=== PATIENT | male | born 1940 | race Caucasian/White ===

== ENCOUNTER 2017-09-18 07:50 | Emergency (ER) | payer BC ==
[~2017-09-18] VITALS: Ht 172.7 cm; Wt 86.2 kg
[~2017-09-18 07:50] MED LIST: ACET-1311 PO; ASPCH81 PO; BENZ1CAP90 PO; COUGH MED; GFNSR600 PO; GLC5 PO; GLC500 PO; METO100T44 PO; MULT-506 PO; OMEG10007 PO; PANT40TA PO; SIMV20TA2 PO
[2017-09-18] MEDS: SODIUM CHLORIDE 0.9% 1000ML 1,000 ML IV STA ×4 (07:50→08:25)
[2017-09-18 07:55] VITALS: TEMP 36.8; Ht 172.7 cm; Wt 86.2 kg
[2017-09-18] MEDS ORDERED: CHOLESTYRAMINE LIGHT 4 GM PKT PO STA (08:02)
[2017-09-18] MEDS ORDERED: KETOROLAC TROMETHAMINE 30 MG/ML VIAL IV STA (08:02)
--- NOTE | 2017-09-18 08:11 | EMERGENCY ROOM VISIT NOTE ---
History Report prepared by Nitza: Magalie Dalton Under the Supervision of: Dr. Celio Robertson M.D. First contact with patient: 07:52 Stated Complaint: ILLNESS History of Present Illness The patient is a 77 year old male who presents to the Emergency Room with complaints of a constant illness beginning 3 hours [employer]AMPING [employer]. The patient woke up at 5am today and felt like he needed to have a bowel movement. He went to the bathroom and had diarrhea. He began feeling weak. He reports chills and sweats. He had a near syncopal episode after the bathroom and states that he fell to the ground because he felt so weak. His called an ambulance. The patient was brought to the ED for further evaluation. 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 He received 4 mg Zofran en route to the ED. The patient states that he had been feeling well yesterday. He does report eating a chicken salad sandwich from a restaurant yesterday afternoon that he thinks may have made him sick. The patient denies any abdominal pain or recent antibiotic use. Source of History: patient Onset: 3 hours STAMPING [employer]ENCH Position: other (global) Quality: other (illness) Timing: constant Associated Symptoms: + chills, + diarrhea, + weakness, No abdominal pain Review of Systems See HPI for pertinent positives & negatives. A total of 10 systems reviewed and were otherwise negative. Past Medical & Surgical Medical Problems: (1) AAA (abdominal aortic aneurysm) (2) Chronic maxillary sinusitis (3) Coronary atherosclerosis of [place] coronary vessel Family History Non-pertinent due to advanced age. Social History Smoking Status: Former Smoker Smokeless Tobacco Use: No Marital Status: Housing Status: lives with significant other Occupation Status: retired Current/Historical Medications Scheduled Aspirin (Aspirin), 81 MG PO DAILY Fish Oil (Rush-3), 1 CAP PO DAILY Glipizide (Glipizide), 10 MG PO DAILY Guaifenesin Ext Rel (Mucinex Ext Rel), 600 MG PO HS Insulin Glargine (Lantus), 28 UNITS SC QAM Lisinopril (Zestril), 2.5 MG PO DAILY Loratadine (Claritin), 10 MG PO DAILY Metformin Hcl (Glucophage), 1,000 MG PO BID Metoprolol Succ (Toprol Xl) (Toprol-Xl ), 100 MG PO HS Multivitamin (Multivitamin), 1 TAB PO DAILY Nitroglycerin (Nitrostat), 0.4 MG UT PRN Ocuvite Preservision (Ocuvite Preservision), 1 TAB PO BID Ondasetron Odt (Zofran Odt), 4 MG SL Q6H Ranitidine Hcl (Zantac), 150 MG PO HS Simvastatin (Zocor), 20 MG PO HS Scheduled PRN Albuterol Sulfate (Proair Respiclick), 2 PUFF INH QID PRN for SOB/Wheezing Allergies Coded Allergies: No Known Allergies (Verified , 09/18/17) Physical Exam Vital Signs Date Time Temp Pulse Resp B/P (MAP) Pulse Ox O2 Delivery O2 Flow Rate FiO2 09/18/17 10:31 89 18 112/62 98 Room Air 09/18/17 09:41 86 18 78/55 99 Room Air 09/18/17 09:08 74 18 97/55 98 Room Air 09/18/17 08:52 79 18 96/62 98 Room Air 09/18/17 08:20 71 79/58 98 75 74/43 09/18/17 07:57 66 09/18/17 07:55 36.8 74 18 100/89 98 Room Air Physical Exam GENERAL: Awake, alert, well-appearing, in no acute distress HENT: Normocephalic, atraumatic. Oropharynx unremarkable. EYES: Normal conjunctiva. Sclera non-icteric. NECK: Supple. No nuchal rigidity. FROM. No JVD. RESPIRATORY: Clear to auscultation. CARDIAC: Regular rate, normal rhythm. Extremities warm and well perfused. Pulses equal. ABDOMEN: Soft, non-distended. No tenderness to palpation. No rebound or guarding. No masses. RECTAL: Deferred. MUSCULOSKELETAL: Chest examination reveals no tenderness. The back is symmetrical on inspection without obvious abnormality. There is no CVA tenderness to palpation. No joint edema. LOWER EXTREMITIES: Calves are equal size bilaterally and non-tender. No edema. No discoloration. NEURO: Normal sensorium. No sensory or motor deficits noted. SKIN: No rash or jaundice noted. Medical Decision & Procedures ER Provider Diagnostic Interpretation: Radiology results as stated below per my review and radiologist interpretation: CT SCAN OF THE ABDOMEN AND PELVIS WITHOUT IV CONTRAST CLINICAL HISTORY: Diarrhea. COMPARISON STUDY: No priors. TECHNIQUE: CT scan of the abdomen and pelvis is performed from the lung bases to the proximal femora. Images are reviewed in the axial, sagittal, and coronal planes. IV contrast was not administered for this examination as per the referring clinician. Note that the examination was performed in suboptimal fashion without oral and IV contrast. A dose lowering technique was utilized adhering to the principles of ALARA. CT DOSE: 686.02 mGy.cm FINDINGS: Lung bases: The heart is top normal in size and without pericardial effusion. The coronary arteries are densely calcified. There are calcified mediastinal and hilar lymph nodes. Changes of chronic interstitial lung disease are noted at the lung bases. There is no airspace consolidation typical for pneumonia or pleural effusion. There is a small hiatal hernia. Liver: The unenhanced liver is normal in size, contour, and attenuation. There is no intrahepatic biliary ductal dilatation. Scattered calcified granulomas are observed. Gallbladder: Unremarkable. Spleen: Normal in size and attenuation. Pancreas: The unenhanced pancreas is moderately atrophic and grossly unremarkable. Adrenal glands: Unremarkable. Kidneys: The unenhanced kidneys are atrophic and without hydronephrosis. There are no renal calculi identified. 2 left-sided renal cysts are identified and measure up to 2.9 cm. Abdominal vasculature: The abdominal aorta is normal in course and caliber noting moderate to advanced atherosclerotic calcification. Bowel: A duodenal diverticulum is noted. There is moderate colonic diverticulosis without CT evidence of acute diverticulitis. Liquid stool is noted throughout the colon. There is no colonic wall thickening or pericolonic infiltration. No bowel obstruction is seen. The appendix is not identified. Peritoneum: There is no intraperitoneal free air or abdominal ascites. There is a small fat-containing umbilical hernia. Lymphadenopathy: None. Pelvic viscera: The prostate gland is mildly enlarged and heterogeneous. The bladder is normal as visualized. Skeletal structures: The skeletal structures are osteopenic. There is mild lumbosacral spondylosis. No lytic or blastic lesions are seen. IMPRESSION: 1. Suboptimal examination without oral and IV contrast. 2. Liquid stool is noted throughout the colon. Correlate clinically for evidence of a diarrheal illness. There is no associated colonic wall thickening or pericolonic inflammation. 3. Moderate colonic diverticulosis without CT evidence of acute diverticulitis. 4. Changes of chronic interstitial lung disease are noted at the lung bases. 5. Additional findings as above. Electronically signed by: Jc Haque M.D. 09/18/2017 9:44 AM Dictated Date/Time: 09/18/2017 9:35 AM Laboratory Results 09/18/17 08:15 Red Blood Count 4.78, Mean Corpuscular Volume 94.8, Mean Corpuscular Hemoglobin 32.2, Mean Corpuscular Hemoglobin Concent 34.0, Mean Platelet Volume 9.6, Neutrophils (%) (Auto) 84.7, Lymphocytes (%) (Auto) 6.3, Monocytes (%) (Auto) 6.2, Eosinophils (%) (Auto) 2.4, Basophils (%) (Auto) 0.1, Neutrophils # (Auto) 12.48, Lymphocytes # (Auto) 0.93, Monocytes # (Auto) 0.92, Eosinophils # (Auto) 0.36, Basophils # (Auto) 0.01 09/18/17 08:15 Test 09/18/17 07:58 09/18/17 08:15 09/18/17 08:35 Bedside Glucose 195 mg/dl (70-99) White Blood Count 14.74 K/uL (4.8-10.8) Red Blood Count 4.78 M/uL (4.7-6.1) Hemoglobin 15.4 g/dL (14.0-18.0) Hematocrit 45.3 % (42-52) Mean Corpuscular Volume 94.8 fL (80-100) Mean Corpuscular Hemoglobin 32.2 pg (25-34) Mean Corpuscular Hemoglobin Concent 34.0 g/dl (32-36) Platelet Count 212 K/uL (130-400) Mean Platelet Volume 9.6 fL (7.4-10.4) Neutrophils (%) (Auto) 84.7 % Lymphocytes (%) (Auto) 6.3 % Monocytes (%) (Auto) 6.2 % Eosinophils (%) (Auto) 2.4 % Basophils (%) (Auto) 0.1 % Neutrophils # (Auto) 12.48 K/uL (1.4-6.5) Lymphocytes # (Auto) 0.93 K/uL (1.2-3.4) Monocytes # (Auto) 0.92 K/uL (0.11-0.59) Eosinophils # (Auto) 0.36 K/uL (0-0.5) Basophils # (Auto) 0.01 K/uL (0-0.2) RDW Standard Deviation 45.7 fL (36.4-46.3) RDW Coefficient of Variation 13.3 % (11.5-14.5) Immature Granulocyte % (Auto) 0.3 % Immature Granulocyte # (Auto) 0.04 K/uL (0.00-0.02) Anion Gap 10.0 mmol/L (3-11) Est Creatinine Clear Calc Drug Dose 33.3 ml/min Estimated GFR () 37.1 Estimated GFR (Non- 32.0 BUN/Creatinine Ratio 16.4 (10-20) Calcium Level 10.2 mg/dl (8.5-10.1) Total Bilirubin 0.5 mg/dl (0.2-1) Direct Bilirubin 0.1 mg/dl (0-0.2) Aspartate Amino Transf (AST/SGOT) 23 U/L (15-37) Alanine Aminotransferase (ALT/SGPT) 31 U/L (12-78) Alkaline Phosphatase 55 U/L (45-117) Total Protein 8.3 gm/dl (6.4-8.2) Albumin 4.3 gm/dl (3.4-5.0) Lipase 197 U/L (73-393) Date/Time Source Procedure Growth Status 09/18/17 08:35 Stool C.difficile Toxin B Gene (PCR) - Final No C. difficile toxin B gene detected Complete Labs reviewed by ED physician. Medications Administered Medications (Trade) Dose Ordered Sig/Tra Route Start Time Stop Time Status Last Admin Dose Admin Sodium Chloride 1,000 ml @ 999 mls/hr Q1H1M STAT IV 09/18/17 08:02 09/18/17 09:02 DC 09/18/17 08:25 999 MLS/HR Cholestyramine Resin (Questran Powder Light) 4 gm NOW STAT PO 09/18/17 08:02 09/18/17 08:05 DC 09/18/17 08:50 4 GM Sodium Chloride 1,000 ml @ 999 mls/hr Q1H1M STAT IV 09/18/17 08:27 09/18/17 09:27 DC 09/18/17 08:25 999 MLS/HR Sodium Chloride 500 ml @ 999 mls/hr Q31M STAT IV 09/18/17 08:45 09/18/17 09:15 DC 09/18/17 09:40 999 MLS/HR ECG Per My Interpretation Indication: weakness Rate (beats per minute): 67 Rhythm: normal sinus Findings: PVC, RBBB, other (no ST elevation or depression) ED Course 0752: Past medical records reviewed. The patient was evaluated in room B7. A complete history and physical examination was performed. 0802: Toradol 30 mg IV - pt refused, Cholestyramine Resin 4 gm PO, NSS 1000 ml @ 999 mls/hr IV 0827: NSS 1000 ml @ 999 mls/hr IV 0845: NSS 500 ml @ 999 mls/hr IV 1039: I reassessed the patient at this time. He is feeling better and resting comfortably. I discussed the results and treatment plan with the patient. I answered all pertaining questions that he had. He expressed understanding and verbalized agreement. I offered the patient admission to the hospital but he declined and would like to go home. The patient will be discharged. Medical Decision Differential diagnosis: Etiologies such as metabolic, infection, hypo/hyperglycemia, electrolyte abnormalities, cardiac sources, intracerebral event, toxicologic, neurologic, as well as others were entertained. This is a 77-year-old male who presents the emergency department complaining of diarrhea. The patient has orthostatic hypotension and in addition has a bump in his creatinine. Because of the patient's history of a AAA he was sent for CAT scan of the abdomen and pelvis however this does not show any evidence of ruptured AAA. The patient was given a normal saline bolus here in the emergency department 3. Repeat examination revealed improvement in the patient 's symptoms. I did offer the patient admission however he is feeling better and wishes to go home. I stressed the need to increase his fluids over the next 48 hours and also stressed a repeat renal profile with his PCP this week. Patient was in agreement with the treatment plan.. Patient was given cholestyramine here in the emergency department and he was able to provide a stool sample. He has no evidence of C. difficile. Medication Reconcilliation Current Medication List: was personally reviewed by me Blood Pressure Screening Patient's blood pressure: Normal blood pressure Impression Primary Impression: Diarrhea Additional Impression: Dehydration Scribe Attestation The scribe's documentation has been prepared under my direction and personally reviewed by me in its entirety. I confirm that the note above accurately reflects all work, treatment, procedures, and medical decision making performed by me. Departure Information Dispostion Home / Self-Care Prescriptions Ondasetron Odt (ZOFRAN ODT) 4 Mg Tab 4 MG SL Q6H for Nausea, #6 TAB Prov: Celio Robertson MD 09/18/17 Referrals Monster Perry D.O. (PCP) Forms HOME CARE DOCUMENTATION FORM, IMPORTANT VISIT INFORMATION Patient Instructions ED Gastroenteritis Report Pend, ED Vomiting Diarrhea Nonspecific Ad, My [facility] Additional Instructions Increase fluids next 48 hours Return if you feel weak, dizzy Have repeat partial Renal profile with PCP within one week Take probiotics for diarrhea Culture results are usually available in approx 48 hours You have been examined and treated today on an emergency basis only. This is not a substitute for, or an effort to provide, complete comprehensive medical care. It is impossible to recognize and treat all injuries or illnesses in a single emergency department visit. It is therefore important that you follow up closely with your PCP. Call as soon as possible for an appointment. Thank you for your time and consideration. I look forward to speaking with you again soon. Please don't hesitate to call us if you have any questions. Problem Qualifiers Primary Impression: Diarrhea Diarrhea type: infectious Qualified Codes: A09 - Infectious gastroenteritis and colitis, unspecified
[2017-09-18] MEDS ORDERED: INSDGI SC (08:16)
[2017-09-18] MEDS ORDERED: LISI-789 PO (08:16)
[2017-09-18] MEDS ORDERED: ALBU18002 INH (08:16)
[2017-09-18] MEDS ORDERED: RANI150T3 PO (08:16)
[2017-09-18] MEDS ORDERED: GFNSR600 PO (08:16)
[2017-09-18] MEDS ORDERED: MULT-190 PO (08:16)
[2017-09-18] MEDS ORDERED: CLR10 PO (08:16)
[2017-09-18] MEDS ORDERED: METF1000 PO (08:16)
[2017-09-18] MEDS ORDERED: GLIP10TA10 PO (08:16)
[2017-09-18] MEDS ORDERED: NTRGSL/4 UT (08:16)
[2017-09-18] MEDS ORDERED: ASPI-461 PO (08:16)
[2017-09-18 08:25] LABS: BASO % 0.1 %; BASO ABS # 0.01 K/uL (0-0.2); EOS % 2.4 %; EOS ABS # 0.36 K/uL (0-0.5); HEMATOCRIT 45.3 % (42-52); HEMOGLOBIN 15.4 g/dL (14.0-18.0); IG# 0.04 K/uL (0.00-0.02); LYMPH % 6.3 %; LYMPH ABS # 0.93 K/uL (1.2-3.4); MEAN CELL VOLUME 94.8 fL (80-100); MEAN CORPUSCULAR HEMOGLOBIN 32.2 pg (25-34); MEAN PLATELET VOLUME 9.6 fL (7.4-10.4); MONO % 6.2 %; MONO ABS # 0.92 K/uL (0.11-0.59); NEUT % 84.7 %; NEUT ABS # 12.48 K/uL (1.4-6.5); PLATELET COUNT 212 K/uL (130-400); RED CELL DISTRIBUTION WIDTH CV 13.3 % (11.5-14.5); RED CELL DISTRIBUTION WIDTH SD 45.7 fL (36.4-46.3); WHITE BLOOD COUNT 14.74 K/uL (4.8-10.8)
[2017-09-18] MEDS ORDERED: OPTIRAY 320 IV PRN (08:30)
[2017-09-18 08:37] LABS: ALBUMIN 4.3 gm/dl (3.4-5.0); CALCIUM 10.2 mg/dl (8.5-10.1); CREATININE 1.95 mg/dl (0.60-1.40); POTASSIUM 5.2 mmol/L (3.5-5.1)
[2017-09-18 08:40] LABS: TOTAL PROTEIN 8.3 gm/dl (6.4-8.2)
[2017-09-18] MEDS ORDERED: SODIUM CHLORIDE 0.9% 500ML 500 ML IV STA (08:45)
--- NOTE | 2017-09-18 09:46 | DIAGNOSTIC IMAGING REPORT ---
CT SCAN OF THE ABDOMEN AND PELVIS WITHOUT IV CONTRAST CLINICAL HISTORY: Diarrhea. COMPARISON STUDY: No priors. TECHNIQUE: CT scan of the abdomen and pelvis is performed from the lung bases to the proximal femora. Images are reviewed in the axial, sagittal, and coronal planes. IV contrast was not administered for this examination as per the referring clinician. Note that the examination was performed in suboptimal fashion without oral and IV contrast. A dose lowering technique was utilized adhering to the principles of ALARA. CT DOSE: 686.02 mGy.cm FINDINGS: Lung bases: The heart is top normal in size and without pericardial effusion. The coronary arteries are densely calcified. There are calcified mediastinal and hilar lymph nodes. Changes of chronic interstitial lung disease are noted at the lung bases. There is no airspace consolidation typical for pneumonia or pleural effusion. There is a small hiatal hernia. Liver: The unenhanced liver is normal in size, contour, and attenuation. There is no intrahepatic biliary ductal dilatation. Scattered calcified granulomas are observed. Gallbladder: Unremarkable. Spleen: Normal in size and attenuation. Pancreas: The unenhanced pancreas is moderately atrophic and grossly unremarkable. Adrenal glands: Unremarkable. Kidneys: The unenhanced kidneys are atrophic and without hydronephrosis. There are no renal calculi identified. 2 left-sided renal cysts are identified and measure up to 2.9 cm. Abdominal vasculature: The abdominal aorta is normal in course and caliber noting moderate to advanced atherosclerotic calcification. Bowel: A duodenal diverticulum is noted. There is moderate colonic diverticulosis without CT evidence of acute diverticulitis. Liquid stool is noted throughout the colon. There is no colonic wall thickening or pericolonic infiltration. No bowel obstruction is seen. The appendix is not identified. Peritoneum: There is no intraperitoneal free air or abdominal ascites. There is a small fat-containing umbilical hernia. Lymphadenopathy: None. Pelvic viscera: The prostate gland is mildly enlarged and heterogeneous. The bladder is normal as visualized. Skeletal structures: The skeletal structures are osteopenic. There is mild lumbosacral spondylosis. No lytic or blastic lesions are seen. IMPRESSION: 1. Suboptimal examination without oral and IV contrast. 2. Liquid stool is noted throughout the colon. Correlate clinically for evidence of a diarrheal illness. There is no associated colonic wall thickening or pericolonic inflammation. 3. Moderate colonic diverticulosis without CT evidence of acute diverticulitis. 4. Changes of chronic interstitial lung disease are noted at the lung bases. 5. Additional findings as above. Electronically signed by: Jc Haque M.D. 09/18/2017 9:44 AM Dictated Date/Time: 09/18/2017 9:35 AM
[2017-09-18 10:31] VITALS: BP 112/62; PULSE 89; O2SAT 98
[2017-09-18] MEDS ORDERED: ONDA4TAB10 SL (10:38)
== END 2017-09-18 10:44 | disposition home or self-care (01) ==
LOC: EDBD 07:50 → C.EDB 07:52
DX: A09 Infectious gastroenteritis and colitis, unspecified (principal); E86.0 Dehydration; I71.4 Abdominal aortic aneurysm, without rupture; I25.10 Atherosclerotic heart disease of native coronary artery without angina pectoris; Z87.891 Personal history of nicotine dependence; Z79.82 Long term (current) use of aspirin; Z79.4 Long term (current) use of insulin; K57.90 Diverticulosis of intestine, part unspecified, without perforation or abscess without bleeding

== ENCOUNTER → 2018-01-11 | Day surgery (SDC) | payer BC ==
[2018-01-07 11:59] VITALS: Ht 172.7 cm; Wt 85.5 kg
[~2018-01-11] VITALS: Ht 172.7 cm; Wt 85.5 kg
[~2018-01-11] MED LIST changes: -ACET-1311 PO; -ASPCH81 PO; +ASPI-461 PO; -BENZ1CAP90 PO; +CLR10 PO; -COUGH MED; -GFNSR600 PO; -GLC5 PO; -GLC500 PO; +GLIP10TA10 PO; +INSDGI SC; +KRIL1CAP24 PO; +LIDOCAINE HCL 2% 2 ML VIAL (20MG/ML) ONE; +LISI-789 PO; +METF1000 PO; +MULT-190 PO; +NTRGSL/4 UT; -OMEG10007 PO; -PANT40TA PO; +PROPOFOL IV EMULSION 10 MG/ML 20 ML VIAL ONE; +PSEU60TA80 PO; +RANI150T3 PO; +SODIUM CHLORIDE 0.9% 500ML 500 ML IV ONE
--- NOTE | 2018-01-11 09:36 | Endo History and Physical ---
History & Physical Date of Service: Jan 11, 2018. Chief Complaint: HX OF POLYP Referring Physician: DR. NEWMAN History of Present Illness History of polyps. Past Surgical History Hx Cardiac Surgery: No Hx Internal Defibrillator: No Hx Pacemaker: No Hx Abdominal Surgery: Yes (APPENDECTOMY,HERNIA) Hx of Implantable Prosthesis: No Hx Post-Op Nausea and Vomiting: No Hx Cancer Surgery: No Hx Thoracic Surgery: No Hx Orthopedic: No Hx Urinary Tract Surgery: No Family History None Social History Smoking Status: Former Smoker Hx Substance Use: No Hx Alcohol Use: Yes (WINE OCC SOCIAL) Allergies Coded Allergies: Aromatic Oils (Verified Allergy, Unknown, PERFUMES/COLOGNES-RASH, SNEEZING ,CONGESTION, 01/07/18) NO KNOWN DRUG ALLERGIES (Verified Allergy, Unknown, NONE, 01/07/18) Current Medications Reported Home Medications Medications Dose Route/Sig Max Daily Dose Days Date Category Dose Instructions Krill Oil 500 mg (Krill Oil) 1 Cap Cap 1 Tab PO QAM 01/07/18 Reported Mucinex D (Pseudoephedrine-Guaifenesin) 1 Tab Tab 1 Tab PO HS 10 01/07/18 Reported Claritin (Loratadine) 10 Mg Tab 10 Mg PO PRN 01/07/18 Reported Zantac (Ranitidine HCl) 150 Mg Tab 150 Mg PO HS 09/18/17 Reported Ocuvite Preservision (Multivitamins/Minerals) 1 Tab Tab 1 Tab PO BID 09/18/17 Reported Nitrostat (Nitroglycerin) 0.4 Mg Tab 0.4 Mg UT PRN 09/18/17 Reported Zestril (Lisinopril) 2.5 Mg Tab 2.5 Mg PO QPM 09/18/17 Reported Lantus (Insulin Glargine) 100 Unit/Ml Inj 28 Units SC QAM 09/18/17 Reported Aspirin 81 Mg Tab 81 Mg PO QAM 09/18/17 Reported PT WILL CHECK WITH [employer] FOR INSTRICTIONS Glipizide 10 Mg Tab 10 Mg PO QAM 09/18/17 Reported Glucophage (Metformin Hcl) 1,000 Mg Tab 1,000 Mg PO BID 09/18/17 Reported Zocor (Simvastatin) 20 Mg Tab 20 Mg PO HS 09/15/06 Reported Toprol-Xl (Metoprolol Succinate) 100 Mg Tabcr 50 Mg PO HS 09/15/06 Reported Multivitamin (Multivitamins) Tab 1 Tab PO QAM 09/14/06 Reported Vital Signs Weight (Kilograms): 85.45 Height (Feet): 5 Height (Inches): 8 Date Time Temp Pulse Resp B/P (MAP) Pulse Ox O2 Delivery O2 Flow Rate FiO2 01/11/18 09:02 36.6 73 16 103/58 (73) 98 Room Air Physical Exam General Appearance: WD/WN, no apparent distress Respiratory/Chest: Respiratory effort: no dyspnea Auscultation: breath sounds normal, no wheezing Cardiovascular: Heart Auscultation: RRR, no murmurs Abdomen: Bowel Sounds: normal Inspection & Palpation: no tenderness, guarding & rebound Assessment and Plan Colonoscopy today
--- NOTE | 2018-01-11 10:21 | Anesthesiology Progress Note ---
Anesthesia Post Op Note Date & Time Jan 11, 2018 at 10:21 Vital Signs Pain Intensity: 0 Vital Signs Past 12 Hours Date Time Temp Pulse Resp B/P (MAP) Pulse Ox O2 Delivery O2 Flow Rate FiO2 01/11/18 09:02 36.6 73 16 103/58 (73) 98 Room Air Notes Mental Status: alert / awake / arousable, participated in evaluation Pt Amnestic to Procedure: Yes Nausea / Vomiting: adequately controlled Pain: adequately controlled Airway Patency, RR, SpO2: stable & adequate BP & HR: stable & adequate Hydration State: stable & adequate Anesthetic Complications: no major complications apparent
--- NOTE | 2018-01-11 10:22 | GI REPORT ---
Patient Name: Ho Lomeli Procedure Date: 01/11/2018 9:36 AM Date of : 1940 Admit Type: Outpatient Age: 77 Gender: Male Attending MD: Jarred Gill MD Procedure: Colonoscopy Providers: Jarred Gill MD Referring MD: Morales Modi Indications: High risk colon cancer surveillance: Personal history of colonic polyps Medicines: Propofol per Anesthesia Complications: No immediate complications. Estimated blood loss: None. Estimated Blood Loss: Estimated blood loss: none. Procedure: Pre-Anesthesia Assessment: - Prior to the procedure, a History and Physical was performed, and patient medications, allergies and sensitivities were reviewed. The patient's tolerance of previous anesthesia was reviewed. - ASA Grade Assessment: III - A patient with severe systemic disease. After I obtained informed consent, the scope was passed under direct vision. Throughout the procedure, the patient's blood pressure, pulse, and oxygen saturations were monitored continuously. The Scope was introduced through the anus and advanced to the terminal ileum, with identification of the appendiceal orifice and IC valve. The colonoscopy was performed with difficulty due to significant looping. Successful completion of the procedure was aided by changing the patient to a supine position. The patient tolerated the procedure well. The quality of the bowel preparation was adequate to identify polyps. Findings: A 2 mm polyp was found in the cecum. The polyp was sessile. The polyp was removed with a cold snare. Resection and retrieval were complete. Two sessile polyps were found in the ascending colon. The polyps were 1 to 2 mm in size. These polyps were removed with a cold forceps and cold snare. Resection and retrieval were complete. A 4 mm polyp was found in the hepatic flexure. The polyp was sessile. The polyp was removed with a cold snare. Resection and retrieval were complete. A 2 mm polyp was found in the descending colon. The polyp was sessile. The polyp was removed with a cold snare. Resection and retrieval were complete. Multiple diverticula were found in the entire colon. Internal hemorrhoids were found. Verification of patient identification for the specimens was done by the physician and nurse using the patient's name, date and medical record number. Impression: - One 2 mm polyp in the cecum, removed with a cold snare. Resected and retrieved. - Two 1 to 2 mm polyps in the ascending colon, removed with a cold snare. Resected and retrieved. - One 4 mm polyp at the hepatic flexure, removed with a cold snare. Resected and retrieved. - One 2 mm polyp in the descending colon, removed with a cold snare. Resected and retrieved. - Diverticulosis in the entire examined colon. - Internal hemorrhoids. - The colon was otherwise normal to the terminal ileum with retroflexed views of the ascending colon and rectum. Recommendation: - Await pathology results. Jarred Gill M.D. Jarred Gill MD 01/11/2018 10:22:29 AM This report has been signed electronically. Note Initiated On: 01/11/2018 9:36 AM Number of Addenda: 0 I attest to the content of the Intraoperative Record and orders documented therein, exceptions below {[id number]}
--- NOTE | 2018-01-11 10:34 | Discharge Instructions ---
Endoscopy Patient Instructions Date / Procedure(s) Performed Jan 11, 2018. Colonoscopy Allergy Information Coded Allergies: Aromatic Oils (Verified Allergy, Unknown, PERFUMES/COLOGNES-RASH, SNEEZING ,CONGESTION, 01/07/18) NO KNOWN DRUG ALLERGIES (Verified Allergy, Unknown, NONE, 01/07/18) Discharge Date / Findings Jan 11, 2018. Multiple small polyps. Diverticulosis. Internal hemorrhoids. Medication Instructions Stopped Medication(s): ASPIRIN TAKEN TODAY Restart Stopped Medication(s): Restart medications today. Provider Instructions Activity Restrictions - No exercising or heavy lifting for 24 hours. - Do not drink alcohol the day of the procedure. - Do not drive a car or operate machinery until the day after the procedure. - Do not make any important decisions or sign important papers in 24 hours after the procedure. Following Day: - Return to full activity which may include returning to work/school. Diet Start your diet with liquids and light foods (jello, soup, juice, toast). Then eat your usual diet if not nauseated. Treatment For Common After Affects For mild abdominal pain, bloating, or excessive gas: - Rest - Eat lightly - Lie on right side Follow-Up Information Follow-up with DR. NEWMAN as scheduled Anesthesia Information What You Should Know You have had a procedure that required some medicine to reduce anxiety and discomfort. This treatment is called moderate sedation. After receiving the treatment, you may be sleepy, but you will be able to breathe on your own. The effects of the treatment may last for several hours. Follow these instructions along with Activity/Diet recommendations noted above: * Do NOT do anything where dizziness or clumsiness would be dangerous. * Rest quietly at home today, then you can be up and about tomorrow. * Have a responsible person stay with you the rest of today. * You may have had an I.V. today. If so, you may take the dressing off later today. Recommendations Call your doctor if: * Trouble breathing * Continuous vomiting for more than 24 hours * Temperature above 101 degrees * Severe abdominal pain or bloating * Pain not relieved by pain medicine ordered * There is increased drainage or redness from any incision * A large amount of rectal bleeding greater than 2-3 tablespoons. (If you had a polyp/s removed or have hemorrhoids, a small amount of blood - from the rectum is to be expected.) * You have any unanswered questions or concerns. IN THE EVENT OF A SERIOUS EMERGENCY, GO TO THE NEAREST EMERGENCY ROOM Your discharge instructions were prepared by provider Jarred Gill. Patient Instructions Signature Page Ho [facility]omeli Patient (or Guardian) Signature/Date: I have read and understand the instructions given to me by my caregivers. Caregiver/RN/Doctor Signature/Date: The above-named patient and/or guardian has received patient instructions on this date. + Original Patient Signature Page (only) stays with chart. Please make copy for patient.
[2018-01-11 10:52] VITALS: BP 126/76; PULSE 67; O2SAT 98
== END | disposition home or self-care (01) ==
LOC: C.GI 08:33
PROVIDERS: ATTEND Internal Medicine Gastroenterology
DX: Z12.11 Encounter for screening for malignant neoplasm of colon (principal); D12.2 Benign neoplasm of ascending colon; D12.0 Benign neoplasm of cecum; D12.3 Benign neoplasm of transverse colon; D12.4 Benign neoplasm of descending colon; K57.90 Diverticulosis of intestine, part unspecified, without perforation or abscess without bleeding; K64.8 Other hemorrhoids; Z86.010 Personal history of colon polyps; E11.9 Type 2 diabetes mellitus without complications; I10 Essential (primary) hypertension; I25.2 Old myocardial infarction; Z87.891 Personal history of nicotine dependence; Z79.82 Long term (current) use of aspirin; Z79.899 Other long term (current) drug therapy; Z79.84 Long term (current) use of oral hypoglycemic drugs; Z79.4 Long term (current) use of insulin